=== PATIENT | male | born 1975 | race Caucasian/White ===

== ENCOUNTER 2016-08-10 14:03 | Emergency (ER) | payer BC ==
[2016-08-10] MEDS ORDERED: THIAMINE HCL 100 MG in NORMAL SALINE 50 ML IV ONE (14:17)
[2016-08-10] MEDS ORDERED: LORazepam 2 MG/ML DISP.SYRIN IV ONE (14:17)
[2016-08-10] MEDS ORDERED: NORMAL SALINE 2,000 ML IV ONE (14:17)
[2016-08-10] MEDS ORDERED: LORazepam 2 MG/ML DISP.SYRIN ONE (14:27)
[2016-08-10 14:30] LABS: Hematocrit 34.3 % (42.0-52.0); Mean Cell Volume 104.3 fl (78-100); Mean Corpuscular Hemoglobin 36.5 pg (27-31); Mean Platelet Volume 8.8 fl (6.0-9.5); Neutrophil # 6.9 K/mm3 (1.3-6.0); Neutrophil % 80.2 % (42-75.0); Platelet Count 150 K/mm3 (150-450); Red Blood Count 3.29 M/mm3 (4.7-6.0); Red Cell Distribution Width 12.6 % (11.5-14.0); White Blood Count 8.6 K/mm3 (4.0-10.5)
[2016-08-10 14:55] LABS: ALT 52 U/L (19-67); AST 133 U/L (0-48); Albumin * 4.1 gm/dl (3.4-5.0); Alkaline Phosphatase * 103 U/L (50-170); Anion Gap 24.8 mmol/L (6.8-13.8); BUN/Creatinine Ratio 4.7 (9.0-21.6); Bilirubin, Total 0.7 mg/dL (0.0-1.1); Blood Urea Nitrogen 6 mg/dL (6-23); Ca. Corrected For Albumin 8.3 mg/dL (8.4-10.2); Calcium * 8.7 mg/dL (7.9-10.9); Carbon Dioxide 19.3 mmol/L (24-32.6); Chloride 98 mmol/L (97-106); Glucose * 177 mg/dL (70-110); Potassium 3.1 mmol/L (3.4-4.6); Salicylate Less than 2.8 mg/dL (2.8-20.0); Sodium 139 mmol/L (132-142); TSH * 2.526 uIU/mL (0.358-3.74); Total Protein 7.6 gm/dL (6.2-8.2); Troponin I Less than 0.017 ng/ml (0.00-0.10)
[2016-08-10] MEDS ORDERED: POTASSIUM CHLORIDE 20 MEQ TABLET.SA PO ONE ×2 (15:29→15:31)
[2016-08-10] MEDS ORDERED: MAGNESIUM OXIDE 400 MG TABLET PO PRN (15:34)
--- NOTE | 2016-08-10 15:37 | ERNOTE ---
Neuro HPI ER Record Date of Service: 08/10/16 Presenting Symptoms: other - Seizure Time Seen by Provider: 08/10/16 14:14 Source: patient, family, EMS Exam Limitations: no limitations Immunizations: IMMUNIZATION HX Immunizations Up to Date No History of Influenza Vaccine No Allergies/Adverse Reactions: Allergies Allergy/AdvReac Type Severity Reaction Status Date / Time No Known Allergies Allergy Verified 08/10/16 14:18 Home Medications: HOME MEDICATIONS LORazepam [Ativan] 1 mg PO Q8H PRN #13 tablet 08/10/16 [Last Taken Unknown] - History of Present Illness Narrative: Patient who uses alcohol regularly has decreased the consumption of alcohol. Patient last drink was yesterday. Patient had a syncopal event with seizure that resolved spontaneously. Onset: sudden onset Severity: severe Context: other - seizure - Character of Deficits New weakness: Present: other - none Altered sensation: Present: other - none Additional Deficits: Present: other - seizure. Absent: vision problems, impaired speech, difficulty swallowing, decrease ability to stand, decrease ability to walk, falling, weakness, off balance, cannot walk, cannot stand, bed- ridden Baseline Cognition: Present: alert, oriented x 4 Baseline Gait: Present: walks w/o assistance Associated Symptoms: Reports: seizure, other - hand tremors. Denies: fever/ chills, sweating, chest pain, neck/back pain, headache, disoriented, confused, agitated, trouble concentrating, trouble thinking, decreased responsiveness, unresponsive Prior Treament: Denies: recently seen Review of Systems - Review of Systems Constitutional: Present: diaphoresis, malaise. Absent: fever, chills, weakness EYE: Present: no symptoms reported ENT: Present: no symptoms reported Respiratory: Absent: shortness of breath, cough, orthopnea, wheezing Cardiology: Present: syncope. Absent: chest pain, palpitations Gastrointestinal/Abdominal: Absent: nausea, vomiting, diarrhea, constipation, abdominal pain Genitourinary: Present: no symptoms reported Musculoskeletal: Present: no symptoms reported Skin: Present: no symptoms reported Neurological: Present: weakness, tremors. Absent: headache Endocrine: Present: no symptoms reported Hematologic/Lymphatic: Present: no symptoms reported Psych: Present: no symptoms reported All Other Systems: All systems neg except as marked - Patient's Past Medical History Patient History - Medical: No pertinent hx Patient History - Cardiac/Respiratory: No pertinent hx Patient History - Cancer: No Hx of Cancer Patient History - Surgical Procedures: No surgical history Patient History - Other: None - Social History Psych History: Hx of Anxiety, Hx of Depression Have you smoked in the past 12 months: Yes Drug Use: none - Immunizations Immunizations Up to Date: No History of Influenza Vaccine: No Physical Exam - Physical Exam General Appearance: Present: wd/wn, alert, no apparent distress Eye Exam: Normal inspection: bilateral, PERRL: bilateral, EOMI: bilateral Ears, Nose, Throat: Present: normal ENT inspection, normal pharynx, dry mucous membranes Neck: Present: normal inspection, nontender Respiratory: Present: no respiratory distress, normal breath sounds, no accessory muscle use, chest nontender, lungs clear Cardiovascular/Chest: Present: no murmur, normal peripheral pulses, tachycardia. Absent: JVD Gastrointestinal/Abdominal: Present: normal bowel sounds, nontender, nondistended, soft, no organomegaly Rectal Exam: Present: nontender, normal rectal tone Male Genitals Exam: Present: normal genitalia, normal prostate, no hernia Extremity Exam: Present: normal inspection, non-tender, normal range of motion, no edema Neurological Exam: Present: alert, oriented, normal mood/affect, no motor/ sensory deficits Skin Exam: Present: normal color, warm/dry Lymphatic Exam: Present: no adenopathy Melani Coma Scale - Assess Eye Opening: Spontaneous Motor: Obeys Commands Verbal: Oriented - Total Coma Scale Total: 15 Initial Stroke Assessment - Date/Time of assessment Stroke Scale Date: 08/10/16 Stroke Scale Time: 15:28 - NIH Stroke Scale Level of Consciousness: Alert LOC Questions (Year and Age): Answers both correctly LOC Commands (open/close eyes/fist): Performs both correctly Lateral Gaze Paresis: None Visual Field Loss: No visual loss Facial Palsy: Normal movement Right Arm Motor (10 sec hold): No drift Left Arm Motor (10 sec hold): No drift Right Leg Motor (5 sec hold): No drift Left Leg Motor (5 sec hold): No drift Limb Ataxia (finger/nose heel/diaz): Absent Sensory Loss (pinprick arms/legs/face): No sensory loss Language Aphasia (description/naming/reading): No aphasia; normal Dysarthria (speech clarity): Normal articulation Neglect Inattention (visual/tactile/auditory/spatial/person): No neglect Initial Stroke Scale Score:: 0 Stroke Inclusion/Exclusion Cri - Exclusion Questions: Seizure at onset of stroke: Yes Secondary Stroke Assessment - Date/Time of assessment Stroke Scale Date: 0 Stroke Scale Time: 15:59 - NIH Stroke Scale Level of Consciousness: Alert LOC Questions (Year and Age): Answers both correctly LOC Commands (open/close eyes/fist): Performs both correctly Lateral Gaze Paresis: None Visual Field Loss: No visual loss Facial Palsy: Normal movement Right Arm Motor (10 sec hold): No drift Left Arm Motor (10 sec hold): No drift Right Leg Motor (5 sec hold): No drift Left Leg Motor (5 sec hold): No drift Limb Ataxia (finger/nose heel/diaz): Absent Sensory Loss (pinprick arms/legs/face): No sensory loss Language Aphasia (description/naming/reading): No aphasia; normal Dysarthria (speech clarity): Normal articulation Neglect Inattention (visual/tactile/auditory/spatial/person): No neglect Secondary Stroke Scale Total:: 0 ED Progress - Date and Time Seen: Date and Time: 08/10/16 16:01 Patient with no distress, full mental status, and with no tremors. Patient at the moment is feeling better. Patient was offered observation, but patient wants to go home and get follow with PCP. Patient at this point has improved. HR has decrease and hypokalemia has been Tx. Patient with negative Troponin. - Results and Orders Patient's Lab Results:: I have reviewed the patient's lab results. Results and Orders: CBC: WNL CMP: Hypokalemia Alcohol/APAP: Negative Trop: Negative TSH: Normal - Vital Signs Patient's Vital Signs:: I have reviewed the patient's vital signs. Vital Signs: Vital Signs 08/10/16 08/10/16 14:13 14:32 Pulse Rate 144 H 125 H Respiratory 20 Rate Blood Pressure 173/107 - EKG EKG read: Interp. by me EKG Comments: HR: 146, S. Tachy, No ST Elevation - X-Ray X-Ray #1 X-Ray: chest Interpretation: Interp. by me X-ray Comments: No infiltrates and no consolidates - CT/Ultrasound CT/Ultrasound Narrative: CT Head: No acute intracranial process reported by Radiologist - Progress/Reassessment Chief Complaint: Seizure Activity Progress:: Improved - Transfer of Care Expected Disposition: Admit Plan - Plan Plan: Patient will need to follow up with Primary Care Services and avoid alcohol. Departure Clinical Impression: Seizure Alcohol withdrawal seizure Qualifiers: Complication of substance-induced condition: uncomplicated Qualified Code(s): F10.230 - Alcohol dependence with withdrawal, uncomplicated - Departure Disposition: Home self-care Condition: Stable Instructions: Hypokalemia, Alcohol Use Disorder, Seizure, Adult, [id number] Prescriptions: LORazepam [Ativan] 1 mg PO Q8H PRN #13 tablet PRN Reason: Anxiety
[2016-08-10] MEDS ORDERED: POTASSIUM CHLORIDE 20 MEQ TABLET.SA ONE (15:40)
[2016-08-10 16:28] VITALS: BP 146/100
== END 2016-08-10 17:05 | disposition home or self-care (01) ==
LOC: ER 14:03
DX: R56.9 Unspecified convulsions (principal); F10.230 Alcohol dependence with withdrawal, uncomplicated; R00.0 Tachycardia, unspecified; E87.6 Hypokalemia
CPT/HCPCS: 36415; 70450; 71010; 80053; 84443; 84484; 85025; 85652; 93005; 96374; 96375; 99284; G0480; G0481